=== PATIENT | female | born 1970 | race Caucasian/White ===

== ENCOUNTER → 2017-07-02 | Outpatient (CLI) | payer BC ==
--- NOTE | 2017-07-02 16:43 | WOMENS IMAGING REPORT ---
EXAM DESCRIPTION: 3D SCREENING MAMMO BILAT COMPLETED DATE/TIME: 07/02/2017 1:13 pm REASON FOR STUDY: SCREENING MAMMO Z12.31 ENCNTR SCREEN MAMMOGRAM FOR MALIGNANT NEOPLASM OF [place] COMPARISON: 06/25/2016 and 01/01/2015. TECHNIQUE: Standard craniocaudal and mediolateral oblique views of each breast recorded using digita l acquisition and breast tomosynthesis. LIMITATIONS: None. FINDINGS: No masses, calcifications or architectural distortion. No areas of suspicion. Read with the assistance of CAD. .[facility] - R[facility] Cenova Version 1.3 .[facility] Imaging - R2 Cenova Version 1.[address] Imaging - R2 Cenova Version 2.4 .[facility] - R2 Cenova Version 2.4 .[facility] BEDS AT THE [facility] - R2 Track Sweeper Version 9.2 IMPRESSION: NORMAL MAMMOGRAM. BIRADS 1. BREAST DENSITY: b. There are scattered areas of fibroglandular density. BIRAD: 1 NEGATIVE RECOMMENDATION: ROUTINE SCREENING COMMENT: The patient has been notified of the results by letter per SA requirements. Additional no tification policies are in place for contacting patient with suspicious or incomplete findings. Quality ID #[id number]: The [employer] recommends an annual screening mammogram for women aged 40 years or over. This facility utilizes a reminder system to ensure that all patients receive reminder letters, and/or direct phone calls for appointments. This includes reminders for routine scr eening mammograms, diagnostic mammograms, or other Breast Imaging Interventions when appropriate. Th is patient will be placed in the appropriate reminder system. The [employer] (ACR) has developed recommendations for screening MRI of the breast s in certain patient populations, to be used in conjunction with mammography. Breast MRI surveillanc e may be appropriate for women with more than 20% lifetime risk of developing breast cancer as deter mined by genetic testing, significant family history of the disease, or history of mantle radiation f or Hodgkins Disease. ACR Practice Guidelines 2008. DBT Technology DBT is a type of tomographic mammography. With conventional mammography, overlapping breast tissue ma y make lesions difficult to detect, even with good compression. DBT uses an x-ray tube that rotates a round the breast, taking images at different angles. These images are then combined to create thin sl ices of the breast that the radiologist can view as a 3D reconstruction. The [employer] unit can perform full-field digital mammograms (2D imaging); or DBT (3D imaging); or both, in a combination mode that quickly performs both the mammogram and the tomosynthesis scan while the breast is still compressed. PQRS 6045F: Fluoroscopic imaging is not utilized for breast tomosynthesis. TECHNICAL DOCUMENTATION: FINDING NUMBER: (1) ASSESSMENT: (1) JOB ID: [id number] [employer]- All Rights Reserved
== END ==
LOC: WI 12:43
PROVIDERS: ATTEND Specialist
DX: Z12.31 Encounter for screening mammogram for malignant neoplasm of breast (principal)
CPT/HCPCS: 77063; G0202; 77067

== ENCOUNTER → 2018-07-05 | Outpatient (CLI) | payer BC ==
--- NOTE | 2018-07-05 14:16 | WOMENS IMAGING REPORT ---
EXAM DESCRIPTION: 3D SCREENING MAMMO BILAT COMPLETED DATE/TIME: 07/05/2018 11:53 am REASON FOR STUDY: SCREENING MAMMO Z12.31 ENCNTR SCREEN MAMMOGRAM FOR MALIGNANT NEOPLASM OF [place] COMPARISON: 07/02/2017 and 06/25/2016. TECHNIQUE: Standard craniocaudal and mediolateral oblique views of each breast recorded using digita l acquisition and breast tomosynthesis. LIMITATIONS: None. FINDINGS: No masses, calcifications or architectural distortion. No areas of suspicion. Read with the assistance of CAD. .[facility] - R[facility] Cenova Version 1.3 .[facility] Imaging - R2 Cenova Version 1.3 .[facility] Imaging - R2 Cenova Version 2.4 .[facility] - R2 Cenova Version 2.4 .[facility] - R2 Cone Machine Feeder Version 9.2 IMPRESSION: NORMAL MAMMOGRAM. BIRADS 1. BREAST DENSITY: b. There are scattered areas of fibroglandular density. BIRAD: 1 NEGATIVE RECOMMENDATION: ROUTINE SCREENING COMMENT: The patient has been notified of the results by letter per SA requirements. Additional no tification policies are in place for contacting patient with suspicious or incomplete findings. Quality ID #225: The [employer] recommends an annual screening mammogram for women aged 40 years or over. This facility utilizes a reminder system to ensure that all patients receive reminder letters, and/or direct phone calls for appointments. This includes reminders for routine scr eening mammograms, diagnostic mammograms, or other Breast Imaging Interventions when appropriate. Th is patient will be placed in the appropriate reminder system. The [employer] (ACR) has developed recommendations for screening MRI of the breast s in certain patient populations, to be used in conjunction with mammography. Breast MRI surveillanc e may be appropriate for women with more than 20% lifetime risk of developing breast cancer as deter mined by genetic testing, significant family history of the disease, or history of mantle radiation f or Hodgkins Disease. ACR Practice Guidelines 2008. DBT Technology DBT is a type of tomographic mammography. With conventional mammography, overlapping breast tissue ma y make lesions difficult to detect, even with good compression. DBT uses an x-ray tube that rotates a round the breast, taking images at different angles. These images are then combined to create thin sl ices of the breast that the radiologist can view as a 3D reconstruction. The [employer] unit can perform full-field digital mammograms (2D imaging); or DBT (3D imaging); or both, in a combination mode that quickly performs both the mammogram and the tomosynthesis scan while the breast is still compressed. PQRS 6045F: Fluoroscopic imaging is not utilized for breast tomosynthesis. TECHNICAL DOCUMENTATION: FINDING NUMBER: (1) ASSESSMENT: (1) JOB ID: [id number] [employer]- All Rights Reserved Reading location - IP/workstation name: [email or web address]-[email or web address]
== END ==
LOC: RAD 11:32
PROVIDERS: ATTEND Specialist
DX: Z12.31 Encounter for screening mammogram for malignant neoplasm of breast (principal)
CPT/HCPCS: 77063; 77067

== ENCOUNTER 2019-09-14 17:34 | Emergency (ER) | payer BC ==
[2019-09-14 17:54] VITALS: BP 126/71
--- NOTE | 2019-09-14 17:55 | ER Document Report ---
ED Eye Complaint - General Chief Complaint: Loss of Vision Stated Complaint: NO VISION IN LEFT EYE/BLINDNESS Time Seen by Provider: 09/14/19 17:44 Primary Care Provider: NEGRO COLINDRES MD [Primary Care Provider] - Follow up as needed JORGE QUINONES DO [ACTIVE STAFF] - 09/14/19 5:54 pm Mode of Arrival: Ambulatory Information source: Patient Notes: Patient is a 48-year-old female who presents with acute loss of vision in her left eye. No other symptoms. Right eye with full vision. No difficulty with speech, motor, or sensation. Patient states it happened when she was looking up at a light. Denies being able to see colors or shadow. No trauma. Patient denies any history of high blood pressure, high cholesterol, or coronary artery disease. No headache. No neck pain. No chest pain, trouble breathing, or any other complaints. No symptoms like this in the past. Patient wears glasses. No other complaints at this time. Patient with no pain, drainage, history of glaucoma. Denies eye pain but states that it feels "weird." TRAVEL OUTSIDE OF THE [place] IN LAST 30 DAYS: No - HPI Onset: Just prior to arrival Eye location: Left Quality of pain: No pain Severity: None Pain Level: Denies Associated symptoms: None - Related Data Allergies/Adverse Reactions: cefuroxime axetil [From Ceftin] Allergy (Severe, Verified 09/14/19 17:36) Flushing Sulfa (Sulfonamide Antibiotics) Allergy (Unknown, Verified 09/14/19 17:36) Past Medical History - General Information source: Patient - Social History Smoking Status: Unknown if Ever Smoked Cigarette use (# per day): No Family History: Reviewed & Not Pertinent Patient has suicidal ideation: No Patient has homicidal ideation: No - Past Medical History Cardiac Medical History: Denies: Hx Coronary Artery Disease, Hx Heart Attack, Hx Hypertension Pulmonary Medical History: Reports: Hx Pneumonia Denies: Hx Asthma, Hx Bronchitis, Hx COPD Neurological Medical History: Denies: Hx Cerebrovascular Accident, Hx Seizures Musculoskeletal Medical History: Denies Hx Arthritis Past Surgical History: Denies: Hx Pacemaker - Immunizations Hx Diphtheria, Pertussis, Tetanus Vaccination: No Review of Systems - Review of Systems -: Yes All other systems reviewed and negative Physical Exam - Vital signs Vitals: Temp Pulse Resp BP Pulse Ox 99.2 F 120 H 15 126/71 H 98 09/14/19 17:52 09/14/19 17:52 09/14/19 17:52 09/14/19 17:52 09/14/19 17:52 Interpretation: Normal - General General appearance: Appears well, Alert - HEENT Head: Normocephalic, Atraumatic Eyes: No: Periorbital ecchymosis, Periorbital edema, Scleral icterus, Tears Extraocular movements intact: Yes Eyelashes: Normal Corrective lenses worn: Yes Anterior chamber: Normal Fundascopic: Other - Concern for hemorrhage in posterior left eye versus pale macula. R eye wnl Nerve palsy: No Visual nieves normal: No Ears: Normal Tympanic membrane: Normal Sinus: Normal Nasal: Normal Mouth/Lips: Normal Mucous membranes: Normal, Dry Pharynx: Normal Neck: Normal - Respiratory Respiratory status: No respiratory distress Chest status: Nontender Breath sounds: Normal Chest palpation: Normal - Cardiovascular Rhythm: Regular Heart sounds: Normal auscultation Murmur: No - Abdominal Inspection: Normal Distension: No distension Bowel sounds: Normal Tenderness: Nontender Organomegaly: No organomegaly - Back Back: Normal, Nontender - Extremities General upper extremity: Normal inspection, Nontender, Normal color, Normal ROM, Normal temperature General lower extremity: Normal inspection, Nontender, Normal color, Normal ROM, Normal temperature, Normal weight bearing. No: Nicole's sign - Neurological Neuro grossly intact: Yes Cognition: Normal Orientation: AAOx4 [place] Coma Scale Eye Opening: Spontaneous Cristine Coma Scale Verbal: Oriented [place] Coma Scale Motor: Obeys Commands [place] Coma Scale Total: 15 Speech: Normal Motor strength normal: LUE, RUE, LLE, RLE Sensory: Normal - Psychological Associated symptoms: Normal affect, Normal mood - Skin Skin Temperature: Warm Skin Moisture: Dry Skin Color: Normal Course - Re-evaluation Re-evalutation: 09/14/19 17:44 Call placed to ophthalmology, Dr. Quinones, regarding acute monocular vision loss with no other symptoms or neurologic changes. Patient sent for CT head. 09/14/19 18:13 Discussed with tax associate who will see patient immediately in the office. Noncontrast head CT with no acute findings. Patient is agreeable to this plan. No changes in vision. Still complete monocular vision loss on the left. Bedside ultrasound with concern for retinal detachment although patient does not have the usual aura. Also concern for CRAO, vitreous detachment or hemorrhage, possibility of CVA. Boiler Shop Mechanic will send patient back to the emergency department after evaluation if symptoms have continued. Patient is agreeable and understands this plan. Her is going to drive her to the tax associate office immediately. Spoke with radiologist. No acute findings on noncontrast head CT - Vital Signs Vital signs: Temp Pulse Resp BP Pulse Ox 99.2 F 120 H 15 126/71 H 98 09/14/19 17:52 09/14/19 17:52 09/14/19 17:52 09/14/19 17:52 09/14/19 17:52 Critical Care Note - Critical Care Note Total time excluding time spent on procedures (mins): 20 - Evaluation and management of acute monocular vision loss, consultation with specialist, coordination of transfer Discharge - Discharge Clinical Impression: Vision loss of left eye Condition: Stable Disposition: OTHER Additional Instructions: Go directly to the eye doctor's office. Referrals: NEGRO COLINDRES MD [Primary Care Provider] - Follow up as needed JORGE QUINONES DO [ACTIVE STAFF] - 09/14/19 5:54 pm
--- NOTE | 2019-09-14 18:16 | RADIOLOGY REPORT (SQ) ---
EXAM DESCRIPTION: CT HEAD WITHOUT COMPLETED DATE/TIME: 09/14/2019 6:02 pm REASON FOR STUDY: sudden vision loss left eye COMPARISON: None. TECHNIQUE: Axial images acquired through the brain without intravenous contrast. Images reviewed wi th bone, brain and subdural windows. Additional sagittal and coronal reconstructions were generated. Images stored on PACS. All CT scanners at this facility use dose modulation, iterative reconstruction, and/or weight based d osing when appropriate to reduce radiation dose to as low as reasonably achievable (ALARA). [facility]: Dose Right [facility]: CareDose [facility]: Dose Right [facility]: Teradose 4D [facility]: [employer] RADIATION DOSE: CT Rad equipment meets quality standard of care and radiation dose reduction techniq ues were employed. CTDIvol: 53.2 mGy. DLP: 991 mGy-cm. mGy. LIMITATIONS: None. FINDINGS: VENTRICLES: Normal size and contour. CEREBRUM: No masses. No hemorrhage. No midline shift. No evidence for acute infarction. Normal gra y/white matter differentiation. No areas of low density in the white matter. CEREBELLUM: No masses. No hemorrhage. No alteration of density. No evidence for acute infarction. EXTRAAXIAL SPACES: No fluid collections. No masses. ORBITS AND GLOBE: No intra- or extraconal masses. Normal contour of globe without masses. CALVARIUM: No fracture. PARANASAL SINUSES: Mucous retention cyst in the right maxillary sinus. SOFT TISSUES: No mass or hematoma. OTHER: No other significant finding. IMPRESSION: NO ACUTE INTRACRANIAL IMAGING FINDINGS. RIGHT MAXILLARY SINUS DISEASE. EVIDENCE OF ACUTE STROKE: NO. COMMENT: Pertinent positive or negative findings of the imaging study reported as a CRITICAL EXAM t harsha FERGUSON DO at18:09 on 09/14/2019. Quality ID # 436: Final reports with documentation of one or more dose reduction techniques (e.g., Au tomated exposure control, adjustment of the mA and/or kV according to patient size, use of iterative reconstruction technique) TECHNICAL DOCUMENTATION: JOB ID: [id number] 2010 [employer]- All Rights Reserved Reading location - IP/workstation name: [email or web address]
[2019-09-14] MEDS ORDERED: FLUOCINONIDE 0.05% CREAM 15 GM TP ONE (19:53)
[2019-09-14] MEDS ORDERED: LIDOCAINE 4% CREAM 5 GM TUBE TP ONE ×2 (19:56→20:30)
== END 2019-09-14 20:29 | disposition other institution (70) ==
LOC: ER 17:34
DX: H54.62 Unqualified visual loss, left eye, normal vision right eye (principal); Z88.2 Allergy status to sulfonamides
CPT/HCPCS: 99285; 70450; J3490

== ENCOUNTER 2019-09-14 20:10 | Observation (INO) | payer BC ==
[2019-09-14] MEDS ORDERED: LIDOCAINE 1% INJ-PF (10 MG/ML) 30 ML SDV ONE (20:17)
[2019-09-14 20:57] LABS: ABSOLUTE BASOPHILS # (AUTO) 0.1 10^3/uL (0.0-0.2); ABSOLUTE LYMPHOCYTES (AUTO) 0.8 10^3/uL (0.5-4.7); ABSOLUTE MONOCYTES (AUTO) 0.5 10^3/uL (0.1-1.4); ABSOLUTE NEUT (AUTO) 8.4 10^3/uL (1.7-8.2); BASOPHILS % (AUTO) 0.5 % (0-2); EOSINOPHILS % (AUTO) 0.1 % (0-6); HEMATOCRIT 35.8 % (36.0-47.0); HEMOGLOBIN 12.1 g/dL (12.0-15.5); LYMPHOCYTES % (AUTO) 8.4 % (13-45); MEAN CORPUSCULAR HEMOGLOBIN 28.1 pg (27.0-33.4); MEAN CORPUSCULAR VOLUME 83 fl (80-97); MONOCYTES % (AUTO) 5.5 % (3-13); PLATELET COUNT 349 10^3/uL (150-450); RED BLOOD COUNT 4.32 10^6/uL (3.72-5.28); RED CELL DISTRIBUTION WIDTH 15.3 % (11.5-14.0); SEGMENTED NEUTROPHILS % (AUTO) 85.5 % (42-78); TOTAL CELLS COUNTED % (AUTO) 100 %; WHITE BLOOD COUNT 9.9 10^3/uL (4.0-10.5)
[2019-09-14] MEDS ORDERED: ASPIRIN 81 MG TABLET, CHEWABLE PO ONE (21:04)
[2019-09-14 21:13] LABS: INTERNATIONAL RATION (INR) 0.97; PROTHROMBIN TIME 12.9 SEC (11.4-15.4)
[2019-09-14 21:14] LABS: PARTIAL THROMBOPLASTIN TIME 27.8 SEC (23.5-35.8)
[2019-09-14 21:27] LABS: ANION GAP 13 (5-19); BLOOD UREA NITROGEN 16 mg/dL (7-20); CALCIUM 9.4 mg/dL (8.4-10.2); CARBON DIOXIDE 24 mmol/L (22-30); CHLORIDE 101 mmol/L (98-107); GLUCOSE 109 mg/dL (75-110); POTASSIUM 3.8 mmol/L (3.6-5.0)
--- NOTE | 2019-09-14 21:45 | RADIOLOGY REPORT (SQ) ---
EXAM DESCRIPTION: EXAM DESCRIPTION: CLINICAL HISTORY: 48 years Female CVA. Sudden vision loss left eye. COMPARISON: CT of the head from today. TECHNIQUE: Study performed with 100 mL of Omnipaque 350. MIP reconstruction. This exam was performed according to our departmental dose-optimization program, which includes automated exposure control, adjustment of the mA and/or kV according to patient size and/or use of iterative reconstruction technique.. FINDINGS: Upper lung nieves are unremarkable. Partially visualized left mediastinal lymph nodes 7 mm transverse diameter. Top of the aortic arch origin of great vessels are unremarkable. Patent bilateral vertebral arteries. Unremarkable bilateral common carotid, internal carotid arteries. IMPRESSION: 1. Normal CTA of the neck. 2. Limited images of the upper mediastinum demonstrates mildly enlarged partially visualized left mediastinal lymph nodes.
--- NOTE | 2019-09-14 22:19 | RADIOLOGY REPORT (SQ) ---
EXAM DESCRIPTION: CT HEAD ANGIOGRAPHY WITHOUT THEN WITH IV CONTRAST COMPLETED DATE/TME: 09/14/2019 20:32 CLINICAL HISTORY: 48 years, Female, CVA COMPARISON: Prior CT head performed earlier the same day TECHNIQUE: Contrast enhanced CTA of the head was performed after the uneventful administration of 70 mL of Omnipaque 350 intravenous contrast. MIPS were created. Images stored on PACS. All CT scanners at this facility use dose modulation, iterative reconstruction, and/or weight based dosing when appropriate to reduce radiation dose to as low as reasonably achievable (ALARA). [facility]: Dose Right [facility]: CareDose [facility]: Dose Right [facility]: Teradose 4D [facility]: [employer] LIMITATIONS: None. FINDINGS: Neck findings are reported separately. Intracranial portions of the internal carotid arteries demonstrate normal contrast opacification, course, contour, and caliber. The bilateral middle cerebral and anterior cerebral arteries opacify with contrast normally. The anterior communicating artery also appears normal. The intracranial portions of the vertebral arteries opacify with contrast normally. Likewise, the basilar artery and both posterior cerebral arteries also appear normal. Major dural venous sinuses opacify with contrast normally as well. A moderately sized rounded opacity is noted about the right maxillary antrum, indicating a mucous retention cyst or inflammatory polyp. Remaining paranasal sinuses and mastoid air cells are clear. Globes and orbits show no acute normality. Limited evaluation of the brain parenchyma reveals no suspicious finding. IMPRESSION: No evidence of major arterial vessel occlusion, aneurysm, or dissection within the head. TECHNICAL DOCUMENTATION: Quality ID # 436: Final reports with documentation of one or more dose reduction techniques (e.g., Automated exposure control, adjustment of the mA and/or kV according to patient size, use of iterative reconstruction technique) copyright 2011 [employer]- All Rights Reserved
[2019-09-14] MEDS ORDERED: MAGNESIUM HYDROXIDE SUSP 30 ML UDCUP PO PRN (22:36)
[2019-09-14] MEDS ORDERED: DOCUSATE SODIUM 100 MG CAPSULE PO PRN (22:36)
--- NOTE | 2019-09-14 22:42 | ER Document Report ---
ED Eye Complaint - General Chief Complaint: Loss of Vision Stated Complaint: LOSS OF VISION Time Seen by Provider: 09/14/19 20:19 Primary Care Provider: NEGRO COLINDRES MD [Primary Care Provider] - Follow up as needed Notes: Patient is a 48-year-old female who presents with acute left monocular vision loss. No pain. No drainage. No trauma. Patient was seen by myself and sent to ophthalmology office for evaluation after initial presentation was concerning for vitreous hemorrhage, retinal detachment, versus artery occlusion. Received call from make up worker that there was concern for ophthalmic artery occlusion and patient was going to be sent back to the ER which she was agreeable to and had been advised would likely happen. Dilated eyes and did brief eye massage in an office. Patient has no history of high blood pressure, high cholesterol, or other diseases that would predispose her to this. No history of IV drug abuse. No fever. At this point, patient symptoms have begun about 2 and half hours ago. TRAVEL OUTSIDE OF THE [place] IN LAST 30 DAYS: No - HPI Onset: Other - 5p Pain Level: Denies Associated symptoms: None - Related Data Allergies/Adverse Reactions: cefuroxime axetil [From Ceftin] Allergy (Severe, Verified 09/14/19 17:36) Flushing Sulfa (Sulfonamide Antibiotics) Allergy (Unknown, Verified 09/14/19 17:36) Past Medical History - General Information source: Patient, Office - Social History Smoking Status: Unknown if Ever Smoked Cigarette use (# per day): No Chew tobacco use (# tins/day): No Frequency of alcohol use: Occasional Drug Abuse: None Family History: Reviewed & Not Pertinent Patient has suicidal ideation: No Patient has homicidal ideation: No - Past Medical History Cardiac Medical History: Denies: Hx Atrial Fibrillation, Hx Coronary Artery Disease, Hx Heart Attack, Hx Hypertension Pulmonary Medical History: Reports: Hx Pneumonia Denies: Hx Asthma, Hx Bronchitis, Hx COPD Neurological Medical History: Denies: Hx Cerebrovascular Accident, Hx Seizures Endocrine Medical History: Denies: Hx Diabetes Mellitus Type 1 Musculoskeletal Medical History: Denies Hx Arthritis Surgical Hx: Negative Past Surgical History: Denies: Hx Pacemaker - Immunizations Hx Diphtheria, Pertussis, Tetanus Vaccination: No Review of Systems - Review of Systems -: Yes All other systems reviewed and negative Physical Exam - Vital signs Interpretation: Normal - General General appearance: Appears well, Alert - HEENT Head: Normocephalic, Atraumatic Eyes: Normal Eyelashes: Normal Pupils: Dilated - After being seen at ophthalmology office bilaterally Mouth/Lips: Normal Mucous membranes: Normal - Respiratory Respiratory status: No respiratory distress Chest status: Nontender Breath sounds: Normal Chest palpation: Normal - Cardiovascular Rhythm: Regular Heart sounds: Normal auscultation Murmur: No - Abdominal Inspection: Normal Distension: No distension Bowel sounds: Normal Tenderness: Nontender Organomegaly: No organomegaly - Back Back: Normal, Nontender - Extremities General upper extremity: Normal inspection, Nontender, Normal color, Normal ROM, Normal temperature General lower extremity: Normal inspection, Nontender, Normal color, Normal ROM, Normal temperature, Normal weight bearing. No: Nicole's sign - Neurological Neuro grossly intact: Yes Cognition: Normal Orientation: AAOx4 [place] Coma Scale Eye Opening: Spontaneous [place] Coma Scale Verbal: Oriented [place] Coma Scale Motor: Obeys Commands Cristine Coma Scale Total: 15 Speech: Normal Motor strength normal: LUE, RUE, LLE, RLE Sensory: Normal - Psychological Associated symptoms: Normal affect, Normal mood - Skin Skin Temperature: Warm Skin Moisture: Dry Skin Color: Normal Course - Re-evaluation Re-evalutation: 09/14/19 19:20 Call placed to [facility] to discuss with stroke team. We will get a hold of physician and call me back. 09/14/19 19:30 Call placed to [facility]. Will discuss with stroke team/endovascular interventionalist and call me back. 19:40 Discussed with endovascular interventionalists. No intervention at this time due to isolated eye deficit. No other neurologic deficits noted. Will discuss with stroke team. In the meantime, blood work, CTA head and neck ordered. 20:00 Discussed with stroke team. Discussed lytics and reviewed study in which 137 patients were in the trial and 32 received TPA. 64% with some relief but some with intracranial bleed. Patient was already not particularly enthused about receiving lytics. She declines lytics at this time. Will wait for CTA head and neck to see if there is any stenosis, plaque, or dissection and then discuss further with endovascular. Otherwise. No indication for heparin. Aspirin will be given. 20:[address] receiving studies. 22:30 Patient with no acute findings on CTA head or neck. She has received aspirin. Other blood work is benign. Patient has regained some vision in her left eye from presentation initially around 1730 which is encouraging. Ophthalmology has seen and evaluated the patient. No evidence for acute intervention by endovasc ulgaudencio. No evidence for heparin. Patient has declined lytics. Patient will be admitted to the hospital service for further work-up of embolic disease. She is agreeable to this plan and stable at the time of admission. - Laboratory Result Diagrams: 09/14/19 20:40 09/14/19 20:40 Laboratory results interpreted by me: 09/14/19 09/14/19 20:40 20:40 Hct 35.8 L RDW 15.3 H Lymph % (Auto) 8.4 L Absolute Neuts (auto) 8.4 H Seg Neutrophils % 85.5 H Creatinine 0.49 L - Diagnostic Test Radiology reviewed: Image reviewed, Reports reviewed - EKG Interpretation by Me EKG shows normal: Sinus rhythm Rate: Tachycardia Additional EKG results interpreted by me: 09/14/19 22:[address] changes or evidence for atrial fibrillation. Patient very anxious at this time. Critical Care Note - Critical Care Note Total time excluding time spent on procedures (mins): 60 - Evaluation and management of monocular vision loss acutely with consultation with specialists, tertiary care centers, coordination of admission, counseling of patient, multiple re-evaluations Discharge - Discharge Clinical Impression: Vision loss of left eye CRAO (central retinal artery occlusion) Qualifiers: Laterality: left Qualified Code(s): H34.12 - Central retinal artery occlusion, left eye Condition: Stable Disposition: ADMITTED INPATIENT Admitting Provider: Khurram (Hospitalist) Unit Admitted: IMCU Referrals: NEGRO COLINDRES MD [Primary Care Provider] - Follow up as needed
[2019-09-14] MEDS: ATORVASTATIN CALCIUM 80 MG TABLET PO SCH (23:33)
[2019-09-15] MEDS ORDERED: INFLUENZA QUAD (6MOS+) 2019-20 VAC 0.5 ML SYR IM ONE (01:42)
[2019-09-15] MEDS ORDERED: ACETAMINOPHEN 325 MG TABLET ONE (01:53)
[2019-09-15] MEDS: ACETAMINOPHEN 325 MG TABLET PO PRN ×3 (02:41→21:18)
--- NOTE | 2019-09-15 05:35 | PDOC H&P ---
History of Present Illness Admission Date/PCP: 09/14/19 23:35 NEGRO COLINDRES MD Patient complains of: Sudden left eye vision loss History of Present Illness: MICHAEL PADRON is a 48 year old female without significant past medical history who presents with an acute loss of vision of the left eye prompting evaluation by ophthalmology diagnosing ophthalmic artery occlusion recommending aspirin and CVA work-up. She denies history of palpitations, PFO or thrombotic or inflammatory state. She denies recent change of medications. Past Medical History Cardiac Medical History: Denies: Atrial Fibrillation, Coronary Artery Disease, Myocardial Infarction, Hypertension Pulmonary Medical History: Reports: Pneumonia Denies: Asthma, Bronchitis, Chronic Obstructive Pulmonary Disease (COPD) Neurological Medical History: Denies: Seizures Endocrine Medical History: Denies: Diabetes Mellitus Type 1 Musculoskeltal Medical History: Denies: Arthritis Hematology: Denies: Anemia Past Surgical History Past Surgical History: Denies: Pacemaker Social History Information Source: Patient Lives with: Spouse/Significant other Smoking Status: Never Smoker Frequency of Alcohol Use: None Drugs: None - Advance Directive Resuscitation Status: Full Code Family History Family History: Other - Mother with ovarian cancer Parental Family History Reviewed: Yes Children Family History Reviewed: Yes Sibling(s) Family History Reviewed.: Yes Medication/Allergy Home Medications: Aspirin 81 mg PO DAILY 04/14/12 Escitalopram Oxalate [Lexapro 10 Mg Tablet] 10 mg PO DAILY 04/14/12 Multivitamin [Multivitamins] 1 each PO DAILY 04/14/12 Ibuprofen [Motrin 600 Mg Tablet] 600 mg PO QID 04/17/12 Oxycodone HCl/Acetaminophen [Percocet 5-325 mg Tablet] 1 tab PO PRN 04/17/12 Allergies/Adverse Reactions: cefuroxime axetil [From Ceftin] Allergy (Severe, Verified 09/14/19 17:36) Flushing Sulfa (Sulfonamide Antibiotics) Allergy (Unknown, Verified 09/14/19 17:36) Review of Systems Constitutional: ABSENT: chills, fever(s), headache(s), weight gain, weight loss Eyes: ABSENT: visual disturbances Ears: ABSENT: hearing changes Cardiovascular: ABSENT: chest pain, dyspnea on exertion, edema, orthropnea, palpitations Respiratory: ABSENT: cough, hemoptysis Gastrointestinal: ABSENT: abdominal pain, constipation, diarrhea, hematemesis, hematochezia, nausea, vomiting Genitourinary: ABSENT: dysuria, hematuria Musculoskeletal: ABSENT: joint swelling Integumentary: ABSENT: rash, wounds Neurological: ABSENT: abnormal gait, abnormal speech, confusion, dizziness, focal weakness, syncope Psychiatric: ABSENT: anxiety, depression, homidical ideation, suicidal ideation Endocrine: ABSENT: cold intolerance, heat intolerance, polydipsia, polyuria Hematologic/Lymphatic: ABSENT: easy bleeding, easy bruising Physical Exam Vital Signs: Temp Pulse Resp BP Pulse Ox 98.7 F 95 16 116/68 98 09/15/19 01:08 09/15/19 03:59 09/15/19 03:59 09/15/19 03:59 09/15/19 03:59 Intake & Output 09/13/19 09/14/19 09/15/19 11:59 11:59 11:59 Weight 73.2 kg General appearance: PRESENT: no acute distress, well-developed, well-nourished Head exam: PRESENT: atraumatic, normocephalic Eye exam: PRESENT: conjunctiva pink, EOMI, PERRLA. ABSENT: scleral icterus Ear exam: PRESENT: normal external ear exam Mouth exam: PRESENT: moist, tongue midline Neck exam: ABSENT: carotid bruit, JVD, lymphadenopathy, thyromegaly Respiratory exam: PRESENT: clear to auscultation anuradha. ABSENT: rales, rhonchi, wheezes Cardiovascular exam: PRESENT: RRR. ABSENT: diastolic murmur, rubs, systolic murmur Pulses: PRESENT: normal dorsalis pedis pul Vascular exam: PRESENT: normal capillary refill GI/Abdominal exam: PRESENT: normal bowel sounds, soft. ABSENT: distended, guarding, mass, organolmegaly, rebound, tenderness Rectal exam: PRESENT: deferred Extremities exam: PRESENT: full ROM. ABSENT: calf tenderness, clubbing, pedal edema Neurological exam: PRESENT: alert, awake, oriented to person, oriented to place, oriented to time, oriented to situation, CN II-XII grossly intact. ABSENT: motor sensory deficit Psychiatric exam: PRESENT: appropriate affect, normal mood. ABSENT: homicidal ideation, suicidal ideation Skin exam: PRESENT: dry, intact, warm. ABSENT: cyanosis, rash Results Laboratory Results: 09/14/19 20:40 09/14/19 20:40 03/05/2509/14/19 09/14/19 20:40 20:40 20:40 WBC 9.9 RBC 4.32 Hgb 12.1 Hct 35.8 L MCV 83 MCH 28.1 MCHC 34.0 RDW 15.3 H Plt Count 349 Seg Neutrophils % 85.5 H Sodium 137.9 Potassium 3.8 Chloride 101 Carbon Dioxide 24 Anion Gap 13 BUN 16 Creatinine 0.49 L Est GFR ( Amer) > 60 Glucose 109 Calcium 9.4 Serum HCG, Qual NEGATIVE 09/14/19 20:40 Troponin I < 0.012 Impressions: Head CTA 09/14/19 20:32 IMPRESSION: No evidence of major arterial vessel occlusion, aneurysm, or dissection within the head. TECHNICAL DOCUMENTATION: Quality ID # 436: Final reports with documentation of one or more dose reduction techniques (e.g., Automated exposure control, adjustment of the mA and/or kV according to patient size, use of iterative reconstruction technique) copyright 2011 [employer] All Rights Reserved Neck CTA 09/14/19 20:32 IMPRESSION: 1. Normal CTA of the neck. 2. Limited images of the upper mediastinum demonstrates mildly enlarged partially visualized left mediastinal lymph nodes. Assessment and Plan - Diagnosis (1) CRAO (central retinal artery occlusion) Qualifiers: Laterality: left Qualified Code(s): H34.12 - Central retinal artery occlusion, left eye Is this a current diagnosis for this admission?: Yes Plan: CVA care set, evaluation for PFO via echo, carotid Doppler and inflammatory, thrombotic state. Continue aspirin with outpatient ophthalmology follow-up. (2) Vision loss of left eye Is this a current diagnosis for this admission?: Yes Plan: Mildly improved, as above - Time Time Spent with patient: 25-34 minutes
[2019-09-15 05:47] LABS: CHOLESTEROL 178.83 mg/dL (0-200); TRIGLYCERIDES 63 mg/dL (<150)
[2019-09-15 05:57] LABS: DIRECT LDL 112 mg/dL (<100)
[2019-09-15] MEDS: HEPARIN SOD (PORCINE) 5,000 UNIT/ML 1 ML VIAL SUBCUT SCH ×3 (06:00→21:18)
[2019-09-15] MEDS: ASPIRIN 325 MG TABLET, ENT COATED PO SCH (09:36)
--- NOTE | 2019-09-15 10:01 | EKG REPORT ---
SEVERITY:- BORDERLINE ECG - SINUS TACHYCARDIA BORDERLINE T WAVE ABNORMALITIES : Confirmed by: Inocencia Quezada 15-Sep-2019 10:00:41
--- NOTE | 2019-09-15 18:08 | XCELERA REPORT ---
[address] [address] Transthoracic Echocardiogram Report Name: MICHAEL PADRON Age: 48 yrs Gender: Female : 1970 Patient Status: Inpatient Patient Location: [address] [place], [place] [address] Study Date: 09/15/2019 11:15 AM Height: 67 in Weight: 161 lb BSA: 1.8 m2 Procedure: A complete two-dimensional transthoracic echocardiogram was performed (2D, M-mode, spectral and color flow Doppler). The study was technically adequate with some images being suboptimal in quality. Reason For Study: Left opthal artery occ eval for PFO Ordering Physician: MICHEAL STANLEY Performed By: Catie Murillo Interpretation Summary The left ventricular ejection fraction is within normal limits. There is borderline concentric left ventricular hypertrophy. Doppler measurements suggest pseudonormalized left ventricular relaxation, which is associated with grade II/IV or mild to moderate diastolic dysfunction Wall motion cannot be accurately commented on, but no definite regional wall motion abnormalities noted. The left ventricle is grossly normal size. Borderline right ventricular enlargement. The right ventricular systolic function is normal. The left atrial size is normal. The right atrium is normal in size There is a trace amount of mitral regurgitation There is no mitral valve stenosis. No aortic regurgitation is present. There is no aortic valve stenosis There is a trace or physiologic amount of tricuspid regurgitation Tricuspid regurgitation jet envelope not well defined to measure RV systolic pressure accurately. The aortic root is not well visualized but is probably normal size. The inferior vena cava appeared normal and decreased > 50% with respiration (RAP 5-10 mmHg) There is no pericardial effusion. Agitated saline study negative for R to L cross over shunting. Also no negative contrast effect noted on RA side. Not sure if provocative measures were used. Overall negative for R to L shunting sec to ASD and PFO. Consider ANTHONY if clinically indicated. MMode/2D Measurements & Calculations RVDd: 2.8 cm LVIDd: 4.3 cm FS: 41.1 % Ao root diam: 2.9 cm IVSd: 0.81 cm LVIDs: 2.6 cm EDV(Teich): 84.7 ml Ao root area: 6.5 cm2 LVPWd: 0.77 cm ESV(Teich): 23.5 ml LA dimension: 3.0 cm EF(Teich): 72.3 % Doppler Measurements & Calculations MV E max luz: MV P1/2t max luz: Ao V2 max: LV V1 max P.9 cm/sec 62.1 cm/sec 105.2 cm/sec 3.3 mmHg MV A max luz: MV P1/2t: 77.8 msec Ao max P.4 mmHg LV V1 max: 72.9 cm/sec MVA(P1/2t): 2.8 cm2 90.8 cm/sec MV E/A: 0.84 MV dec slope: 233.8 cm/sec2 MV dec time: 0.28 sec PA V2 max: TR max luz: MV P1/2t-pr_phl: 81.9 cm/sec 216.1 cm/sec 77.8 msec PA max PG: TR max P.7 mmHg 2.7 mmHg Left Ventricle The left ventricle is grossly normal size. There is borderline concentric left ventricular hypertrophy. The left ventricular ejection fraction is within normal limits. Doppler measurements suggest pseudonormalized left ventricular relaxation, which is associated with grade II/IV or mild to moderate diastolic dysfunction. Wall motion cannot be accurately commented on, but no definite regional wall motion abnormalities noted. Right Ventricle Borderline right ventricular enlargement. There is normal right ventricular wall thickness. The right ventricular systolic function is normal. Atria The right atrium is normal in size. The left atrial size is normal. There is no Doppler evidence for an interatrial shunt. Mitral Valve The mitral valve is grossly normal. There is no mitral valve stenosis. There is a trace amount of mitral regurgitation. Aortic Valve The aortic valve is grossly normal. There is no aortic valve stenosis. No aortic regurgitation is present. Tricuspid Valve The tricuspid valve is not well visualized, but is grossly normal. There is no tricuspid stenosis. There is a trace or physiologic amount of tricuspid regurgitation. Tricuspid regurgitation jet envelope not well defined to measure RV systolic pressure accurately. Pulmonic Valve The pulmonic valve is not well visualized. Great Vessels The aortic root is not well visualized but is probably normal size. The inferior vena cava appeared normal and decreased > 50% with respiration (RAP 5-10 mmHg). Effusions There is no pericardial effusion. Incidental Findings Agitated saline study negative for R to L cross over shunting. Also no negative contrast effect noted on RA side. Not sure if provocative measures were used. Overall negative. Consider ANTHONY if clinically indicated. : MICHEAL STANLEY Shyamal
[2019-09-15] MEDS: ATORVASTATIN CALCIUM 80 MG TABLET PO SCH (21:19)
[2019-09-15] MEDS ORDERED: BUTALB/ACETAMINOPHEN/CAFFEINE 1 TAB EACH PO PRN (21:54)
[2019-09-15] MEDS ORDERED: KETOROLAC TROMETHAMINE INJ/PF 30 MG/1 ML SDV IV PRN (21:54)
[2019-09-15] MEDS ORDERED: TEMAZEPAM 7.5 MG CAPSULE PO SCH (22:00)
[2019-09-15] MEDS ORDERED: ESCITALOPRAM OXALATE 10 MG TABLET PO ONE (22:30)
--- NOTE | 2019-09-15 23:45 | RADIOLOGY REPORT (SQ) ---
EXAM DESCRIPTION: Noncontrast CT head CLINICAL HISTORY: 48 years Female opthalmic artery occulsion c intractable headache TECHNIQUE: Noncontrast CT head. All CT scans at this facility use dose modulation, iterative reconstruction, and/or weight based dosing when appropriate to reduce radiation dose to as low as reasonably achievable. COMPARISON: None. FINDINGS: [place] matter, white matter, ventricles, and cisterns are within normal limits. No acute hemorrhage or mass effect. Visualized portions of paranasal sinuses demonstrate a large mucous retention cyst versus polyp in the right maxillary sinus. The mastoids are clear. Visualized portions of the calvarium are within normal limits. IMPRESSION: 1. No acute intracranial findings. If there is clinical concern for acute intracranial process, such as stroke, MRI brain is recommended as a more sensitive evaluation.
[2019-09-16] MEDS: HEPARIN SOD (PORCINE) 5,000 UNIT/ML 1 ML VIAL SUBCUT SCH (05:00)
[2019-09-16] MEDS ORDERED: ESCITALOPRAM OXALATE 10 MG TABLET PO ONE (05:00)
[2019-09-16] MEDS: ASPIRIN 325 MG TABLET, ENT COATED PO SCH (09:14)
--- NOTE | 2019-09-16 09:28 | RADIOLOGY REPORT (SQ) ---
EXAM DESCRIPTION: MRI HEAD WITHOUT COMPLETED DATE/TIME: 09/16/2019 9:06 am REASON FOR STUDY: CRAO COMPARISON: CT from 09/15/2019. TECHNIQUE: Multiplanar imaging includes non-contrasted T1, T2, FLAIR, and diffusion with ADC map seq uences. Images stored on PACS. LIMITATIONS: None. FINDINGS: ANATOMY: No anomalies. Normal vascular flow voids. Pituitary fossa normal. CSF SPACES: Normal in size and contour. No hemorrhage. CEREBRUM: Sulci and gyri normal in size and contour. Normal white matter signal on FLAIR imaging. No evidence of hemorrhage, mass, or extraaxial fluid collection. POSTERIOR FOSSA: No signal alteration. No hemorrhage. No edema, masses or mass effect. Internal nandini tory canals, cerebello-pontine angles, mastoids normal. DIFFUSION IMAGING: Negative for acute or sub-acute infarction. ORBITS: No masses. Globes normal. PARANASAL SINUSES: No fluid levels. Large mucous retention cyst in the right maxillary sinus. OTHER: No other significant finding. IMPRESSION: 1. No acute or suspicious intracranial abnormality. 2. Chronic appearing right maxillary sinus disease. EVIDENCE OF ACUTE STROKE: NO. TECHNICAL DOCUMENTATION: JOB ID: [id number] 2010 [employer]- All Rights Reserved Reading location - IP/workstation name: [email or web address]
[2019-09-16] MEDS ORDERED: ASCORBIC ACID 500 MG TABLET PO SCH (10:00)
[2019-09-16 11:09] VITALS: BP 116/68
--- NOTE | 2019-09-16 16:36 | PDOC DISCHARGE SUMMARY ---
Impression - Admit/DC Date/PCP Admission Date/Primary Care Provider: 09/14/19 23:35 NEGRO COLINDRES MD Discharge Date: 09/16/19 - Discharge Diagnosis (1) CRAO (central retinal artery occlusion) Is this a current diagnosis for this admission?: Yes - Additional Information Resuscitation Status: Full Code Discharge Diet: Cardiac Discharge Activity: Activity As Tolerated, No Driving Referrals: SKYLER HUSAIN MD [ACTIVE STAFF] - 09/20/19 10:00 am (*Arrive to appointment 15 minutes early to fill out paperwork *Bring ID card and insurance card. ) JORGE QUINONES DO [ACTIVE STAFF] - (3-5 days ) Prescriptions: Escitalopram Oxalate [Lexapro 10 mg Tablet] 10 mg PO DAILY #30 tablet Home Medications: Escitalopram Oxalate [Lexapro 10 mg Tablet] 10 mg PO QPM 04/14/12 Multivitamin [Multivitamins] 1 cap PO DAILY 04/14/12 Ascorbic Acid [Vitamin C 500 mg Tablet] 500 mg PO DAILY 09/15/19 Escitalopram Oxalate [Lexapro 10 mg Tablet] 10 mg PO DAILY #30 tablet 09/16/19 History of Present Illiness History of Present Illness: MICHAEL PADRON is a 48 year old female without significant past medical history who presents with an acute loss of vision of the left eye prompting evaluation by ophthalmology diagnosing ophthalmic artery occlusion recommending aspirin and CVA work-up. She denies history of palpitations, PFO or thrombotic or inflammatory state. She denies recent change of medications. Hospital Course Hospital Course: Her stroke work-up was all completely negative. Her echocardiogram and MRI of the brain were unremarkable. She had a CTA of the head and neck that were unremarkable. She has had some improvement in her vision of her left eye. She will take an aspirin every day. Her LDL was a little bit elevated and so she is going to make some dietary changes to try to get her LDL down below 100. She has follow-up scheduled with ophthalmology. Her labs and examination were reassuring and she was discharged in stable condition. Physical Exam Vital Signs: Temp Pulse Resp BP Pulse Ox 98.7 F 100 16 116/68 98 09/16/19 11:08 09/16/19 11:08 09/16/19 11:08 09/16/19 11:08 09/16/19 11:08 Intake & Output 09/15/19 09/16/19 09/17/19 06:59 06:59 06:59 Intake Total 390 Output Total 360 Balance 30 Weight 73.2 kg 71.1 kg General appearance: PRESENT: no acute distress, cooperative Respiratory exam: PRESENT: clear to auscultation anuradha, symmetrical, unlabored. ABSENT: accessory muscle use, chest wall tenderness, crackles, prolonged expiratory phas, retraction, rhonchi, tachypnea, wheezes Cardiovascular exam: PRESENT: RRR, +S1, +S2 Pulses: PRESENT: normal carotid pulses Vascular exam: PRESENT: normal capillary refill GI/Abdominal exam: PRESENT: normal bowel sounds, soft. ABSENT: distended, guarding, rebound, tenderness Extremities exam: ABSENT: clubbing, pedal edema Musculoskeletal exam: PRESENT: normal inspection. ABSENT: deformity Neurological exam: PRESENT: alert, awake, oriented to person, oriented to place, oriented to situation, motor sensory deficit - She has a dark spot in the center of her field of vision and he she has some peripheral visual acuity deficit, both of these on the left eye Psychiatric exam: PRESENT: appropriate affect, normal mood Skin exam: PRESENT: dry, warm Results Laboratory Results: WBC 9.9 10^3/uL (4.0-10.5) 09/14/19 20:40 RBC 4.32 10^6/uL (3.72-5.28) 09/14/19 20:40 Hgb 12.1 g/dL (12.0-15.5) 09/14/19 20:40 Hct 35.8 % (36.0-47.0) L 09/14/19 20:40 MCV 83 fl (80-97) 09/14/19 20:40 MCH 28.1 pg (27.0-33.4) 09/14/19 20:40 MCHC 34.0 g/dL (32.0-36.0) 09/14/19 20:40 RDW 15.3 % (11.5-14.0) H 09/14/19 20:40 Plt Count 349 10^3/uL (150-450) 09/14/19 20:40 Lymph % (Auto) 8.4 % (13-45) L 09/14/19 20:40 [place] % (Auto) 5.5 % (3-13) 09/14/19 20:40 Eos % (Auto) 0.1 % (0-6) 09/14/19 20:40 Baso % (Auto) 0.5 % (0-2) 09/14/19 20:40 Absolute Neuts (auto) 8.4 10^3/uL (1.7-8.2) H 09/14/19 20:40 Absolute Lymphs (auto) 0.8 10^3/uL (0.5-4.7) 09/14/19 20:40 Absolute Monos (auto) 0.5 10^3/uL (0.1-1.4) 09/14/19 20:40 Absolute Eos (auto) 0.0 10^3/uL (0.0-0.6) 09/14/19 20:40 Absolute Basos (auto) 0.1 10^3/uL (0.0-0.2) 09/14/19 20:40 Seg Neutrophils % 85.5 % (42-78) H 09/14/19 20:40 ESR 10 mm/hr (0-20) 09/15/19 04:23 PT 12.9 SEC (11.4-15.4) 09/14/19 20:56 INR 0.97 09/14/19 20:56 APTT 27.8 SEC (23.5-35.8) 09/14/19 20:56 Sodium 137.9 mmol/L (137-145) 09/14/19 20:40 Potassium 3.8 mmol/L (3.6-5.0) 09/14/19 20:40 Chloride 101 mmol/L (98-107) 09/14/19 20:40 Carbon Dioxide 24 mmol/L (22-30) 09/14/19 20:40 Anion Gap 13 (5-19) 09/14/19 20:40 BUN 16 mg/dL (7-20) 09/14/19 20:40 Creatinine 0.49 mg/dL (0.52-1.25) L 09/14/19 20:40 Est GFR ( Amer) > 60 (>60) 09/14/19 20:40 Est GFR (MDRD) Non-Af > 60 (>60) 09/14/19 20:40 Glucose 109 mg/dL (75-110) 09/14/19 20:40 Hemoglobin A1c % 5.5 % (4.7-6.0) 09/15/19 04:23 Calcium 9.4 mg/dL (8.4-10.2) 09/14/19 20:40 Troponin I < 0.012 ng/mL 09/14/19 20:40 C-Reactive Protein < 5.0 mg/L (<10.0) 09/15/19 04:23 Triglycerides 63 mg/dL (<150) 09/15/19 04:23 Cholesterol 178.83 mg/dL (0-200) 09/15/19 04:23 LDL Cholesterol Direct 112 mg/dL (<100) H 09/15/19 04:23 VLDL Cholesterol 13.0 mg/dL (10-31) 09/15/19 04:23 HDL Cholesterol 50 mg/dL (>40) 09/15/19 04:23 Serum HCG, Qual NEGATIVE (NEGATIVE) 09/14/19 20:40 09/14/19 20:40 Troponin I < 0.012 Impressions: Head CTA 09/14/19 20:32 IMPRESSION: No evidence of major arterial vessel occlusion, aneurysm, or dissection within the head. TECHNICAL DOCUMENTATION: Quality ID # [id number]: Final reports with documentation of one or more dose reduction techniques (e.g., Automated exposure control, adjustment of the mA and/or kV according to patient size, use of iterative reconstruction technique) copyright 2011 [employer]- All Rights Reserved Neck CTA 09/14/19 20:32 IMPRESSION: 1. Normal CTA of the neck. 2. Limited images of the upper mediastinum demonstrates mildly enlarged partially visualized left mediastinal lymph nodes. Head CT 09/15/19 00:00 IMPRESSION: 1. No acute intracranial findings. If there is clinical concern for acute intracranial process, such as stroke, MRI brain is recommended as a more sensitive evaluation. Head MRI 09/15/19 22:09 IMPRESSION: 1. No acute or suspicious intracranial abnormality. 2. Chronic appearing right maxillary sinus disease. EVIDENCE OF ACUTE STROKE: NO. Plan Time Spent: Greater than 30 Minutes Stroke Is this a Stroke Patient?: No Acute Heart Failure - Is this a Heart Failure Patient?: No
[2019-09-16] MEDS ORDERED: ESCITALOPRAM OXALATE 10 MG TABLET PO SCH (18:00)
== END 2019-09-16 12:38 | disposition home or self-care (01) ==
LOC: ER 20:10 → EH 23:35 → INTOOBSV 23:35 → 3N 09-15 00:32
PROVIDERS: ADMIT Internal Medicine; ATTEND Family Medicine
DX: H34.12 Central retinal artery occlusion, left eye (principal); R00.0 Tachycardia, unspecified; Z79.82 Long term (current) use of aspirin
CPT/HCPCS: 93005; 99291; 36415 ×2; 84703; 85652; 85610; 85730; 86140; 84484; 83036; 80061; 93306; 70551; 70450; 70496; 70498; 93010; G0378 ×2; J1644 ×2; J3490 ×2